=== PATIENT | female | born 1975 | race Caucasian/White ===

== ENCOUNTER → 2019-10-31 | Outpatient (CLI) | payer BC ==
--- NOTE | 2019-10-31 14:59 | KCIC ---
EXAM: Bilateral digital screening mammogram with tomosynthesis. HISTORY: 43-year-old female presents for screening mammography. TECHNIQUE: Full-field digital craniocaudal and mediolateral oblique 2D and 3D tomosynthesis images of both breasts are obtained for evaluation. Computer aided detection with [employer] software version 9.3 was applied. COMPARISON: None. This is a baseline mammogram. BREAST PARENCHYMAL DENSITY: Level D - Extremely dense. FINDINGS: There are areas of nodularity throughout the right breast, the most conspicuous of which appears to be partially circumscribed at the posterior 12:00 position. There are areas of asymmetry within both breasts which do not persist between projections. There are few punctate benign calcifications. There are unremarkable breast implants. IMPRESSION: BI-RADS Category 0: Incomplete. Additional imaging needed. RECOMMENDATION: Further evaluation with a right breast sonogram is recommended to assess areas of mammographic nodularity, predominantly at the posterior 12:00 position. If your mammogram demonstrates that you have dense breast tissue, which could hide abnormalities, and if you have other risk factors for breast cancer that have been identified, you might benefit from supplemental screening tests that may be suggested by your ordering physician. Dense breast tissue, in and of itself, is a relatively common condition. This information is not provided to cause undue concern, but rather to raise your awareness and to promote discussion with your physician regarding the presence of other risk factors, in addition to dense breast tissue. A report of your mammography results will be sent to you and your physician. You should contact your physician if you have any questions or concerns regarding this report. Mammography is a sensitive method for finding small breast cancers, but it does not detect them all and is not a substitute for careful clinical examination. A negative mammogram does not negate a clinically suspicious finding and should not result in delay in biopsying a clinically suspicious abnormality. PQRS compliance statement - Patient information was entered into a reminder system with a target due date for the next mammogram. "Our facility is accredited by the [employer] Mammography [employer]." Electronically signed by: Rachelle Gray MD (10/31/2019 2:56 PM) [email or web address]
== END ==
LOC: KCIC MAMMO 13:30
PROVIDERS: ATTEND Family Medicine
DX: Z12.31 Encounter for screening mammogram for malignant neoplasm of breast (principal)
CPT/HCPCS: 77063; 77067

== ENCOUNTER → 2019-11-09 | Outpatient (CLI) | payer BC ==
--- NOTE | 2019-11-09 13:22 | KCIC ---
Right breast ultrasound: Reason for examination: Nodular density on screening mammogram. Comparison is made to mammographic exam dated 10/31/2019. Right whole breast ultrasound including evaluation of all 4 quadrants and the retroareolar and axillary regions of the right breast was performed. There are multiple small anechoic and hypoechoic lesions consistent with simple and septated cysts and fibrocystic lesions. These measure up to 1.1 cm in size. There is also however a hypoechoic irregularly marginated lesion with some vascular flow measuring 1.1 cm in size at the 10:00 position 4 cm from the nipple line adjacent to the chest wall. Malignancy at this site cannot be excluded and further evaluation with ultrasound-guided biopsy is recommended. No abnormal appearing lymph nodes are seen in the axilla. IMPRESSION: 1.1 cm hypoechoic irregularly marginated lesion with vascular flow at the 10:00 position 4 cm from the nipple. Malignancy cannot be excluded and ultrasound-guided biopsy is recommended. Multiple benign-appearing cystic and fibrocystic lesions measuring up to 1.1 cm in size. Recommend 6 month follow-up. BI-RADS Category 5: Highly suspicious. These findings were discussed with the patient and the patient's nurse practitioner, Dot Powers, was notified about these findings on 11/09/2019 at 1319. "Our facility is accredited by the [employer]ammography [employer]." This patient's information has been entered into a reminder system for the patient to be notified with the results of her examination and a target date for the next mammogram. Electronically signed by: Radha Copeland MD (11/09/2019 1:19 PM) [id number]
== END | disposition home or self-care (01) ==
LOC: KCIC US 09:32
PROVIDERS: ATTEND Family Medicine
DX: N64.89 Other specified disorders of breast (principal)
CPT/HCPCS: 76641

== ENCOUNTER → 2019-11-21 | Outpatient (CLI) | payer BC ==
--- NOTE | 2019-11-21 11:01 | RAD ---
Examination: Right breast diagnostic ultrasound. INDICATION: 43-year-old woman presents for ultrasound-guided right breast core needle biopsy of a suspicious mass in the right breast COMPARISON: Screening mammogram of 10/31/2019 and right breast ultrasound of 11/09/2019. TECHNIQUE AND FINDINGS: Grayscale ultrasound imaging of the upper-outer quadrant right breast in the area of sonographic concern at the 10:00 position 4 cm from the nipple reveals an irregular hypoechoic parallel orientation 9.5 mm mass corresponding with the mass recommended for biopsy on prior breast ultrasound. However, with harmonics, the lesion is less hypoechoic slightly less well-defined. There is peripheral adjacent vascularity. The examination is being performed in the setting of an evolving coronavirus pandemic (COVID-19) for which current CDC guidelines indicate rescheduling nonemergent outpatient visits. Although imaging appearance on today's examination is less suspicious than previously, biopsy should still be considered given the focality of this sonographic finding in the augmented right breast. On direct questioning, patient denies any breast symptoms. After discussing the risks and benefits of proceeding with biopsy, patient accepted my offer to postpone biopsy for up to 3 months. At that time, assuming no new or developing breast symptoms, she can return for follow-up imaging with possible biopsy. She should report any new symptoms to her primary care physician to help facilitate earlier evaluation as clinically warranted. IMPRESSION: Suspicious 9.5 mm right breast mass at the 10:00 position 4 cm from the nipple, previously recommended for biopsy but rescheduled due to current public health guidelines regarding elective outpatient procedures. Recommend patient return within 3 months for follow-up ultrasound and possible biopsy. Discussed with patient. BI-RADS Category 4 Findings suspicious for malignancy Biopsy should should be considered. Recommend patient return within 3 months for reassessment and possible biopsy if the finding persists. BI-RADS 4 -- suspicious abnormality, biopsy recommended
== END | disposition home or self-care (01) ==
LOC: US 08:00
PROVIDERS: ATTEND Surgery
DX: R92.8 Other abnormal and inconclusive findings on diagnostic imaging of breast (principal)
CPT/HCPCS: 76641

== ENCOUNTER → 2020-02-15 | Outpatient (CLI) | payer BC ==
--- NOTE | 2020-02-15 17:16 | RAD ---
DATE: 02/15/2020 3:32 PM EXAM: DIGITAL DIAGNOSTIC RT, US GUID NDL PLACE/ASPI/BX HISTORY: 44-year-old woman with a suspicious 1 cm mass in the right breast status post previous breast augmentation recommended for biopsy but for which biopsy was postponed due to public health guidelines encouraging delay of elective medical procedures during the rising incidence of covid-19 cases earlier in the year. COMPARISON: Screening mammogram of 10/31/2019, right diagnostic breast ultrasound of 11/09/2019 and 11/21/2019 TECHNIQUE AND FINDINGS: Informed consent was obtained and an appropriate procedural pause observed. Using standard sterile technique, ultrasound guidance and local anesthesia, multiple core biopsy samples using a 14-gauge spring-loaded biopsy needle of the area of sonographic concern in the upper outer right breast at the 10:00 position 4 cm from the nipple were obtained. An S shaped biopsy marker was deployed at the biopsy site and hemostasis assured with direct breast compression for 5 minutes. The puncture site was dressed. Implant displaced CC and MLO views of the right breast were obtained following sampling of the area of sonographic suspicion in the upper outer right breast. These showed heterogeneously dense breast parenchyma with a newly present S shaped biopsy marker in the upper outer right breast with no postbiopsy hematoma and no evidence of implant rupture. IMPRESSION: Uncomplicated ultrasound guided right breast core needle biopsy of a 1 cm mass in the upper outer right breast, with satisfactory deployment of the biopsy marker at the targeted site. Pathology results pending. An addendum will be issued once pathology results become available.
--- NOTE | 2020-02-20 17:06 | PATHOLOGY ---
[facility] Accession Number: [id number] . 01 Material submitted: . breast - RIGHT BREAST TISSUE 10:00 4CMFN. Modifiers: right . 01 Clinical history: . Right breast mass . 02 Diagnosis: Breast tissue, right breast mass at 10:00, needle biopsies: - Benign sclerosing lesion of breast showing focal moderate/florid ductal epithelial hyperplasia. See comment. . (JPM:mmbradford/pit; 02/19/2020) [facility] 02/20/2020 0905 Local . 02 Comment: Sections of the right breast mass at 10:00 needle biopsy reveal a sclerosing lesion of breast showing focal duct ectasia and moderate/florid ductal epithelial hyperplasia. Within the sclero-elastotic stroma there are scattered small tubules which are lined by epithelial cells having rounded to ovoid bland appearing nuclei. Immunoperoxidase stains for myoepithelial cells are obtained and yield the following results: . P63 (A1): Presence of myoepithelial cells in small tubules within sclero-elastotic stroma. Smooth muscle myosin heavy chain (A1): Presence of myoepithelial cells in small tubules within sclero-elastotic stroma. . P63 (A2): Presence of myoepithelial cells in small tubules within sclero-elastotic stroma. Smooth muscle myosin heavy chain (A2): Presence of myoepithelial cells in small tubules within sclero-elastotic stroma. . The morphologic and immunophenotypic findings are supportive of the diagnosis of a benign sclerosing lesion of breast showing focal moderate/florid ductal epithelial hyperplasia. . The case is also examined by Dr. Almodovar, who concurs with the diagnosis. (JPM:zamzam 02/20/2020) . Special stains performed: Immunoperoxidase for p63 on A1 and A2 and smooth muscle myosin heavy chain on A1 and A2. . 02 Electronically signed: . Pablo Norris MD, Pathologist NPI- [id number] . 01 Gross description: . The specimen is received in formalin, labeled "Elizabeth Kinney, right breast 10:00 4 cmFN" and consists of 4 needle cores of yellow-villavicencio breast tissue measuring between 0.6 cm and 1.4 cm in length and 0.1-0.2 cm each in diameter which are entirely submitted in A1-A3. The specimen was obtained at 3:15 PM on 02/15/2020 and placed in formalin at 3:18 PM. The cold ischemic time is 3 minutes and the total formalin fixation time is greater than 72 hours. (SDY; 02/18/2020) SYU/SYU 02/18/2020 1448 Local . 02 Pathologist provided ICD-10: N60.21, N62 . 02 CPT . 254365, R99658, [id number] Specimen Comment: A courtesy copy of this report has been sent to [phone], [phone] Specimen Comment: [id number] Specimen Comment: Report sent to / DR CAO Specimen Comment: Report sent to Performed at: 01 [facility] [address], [place] [id number] MD Brock Emery MD Phone: [phone] Performed at: 02 [facility] [address] [place], [place] [id number] MD Pablo Norris MD Phone: [phone]
== END | disposition home or self-care (01) ==
LOC: US 13:17
PROVIDERS: ATTEND Surgery
DX: N63.11 Unspecified lump in the right breast, upper outer quadrant (principal); N60.21 Fibroadenosis of right breast; N62 Hypertrophy of breast
CPT/HCPCS: 19083; 77065; 88305; 88341; 88342; C1713; 19081; 76942

== ENCOUNTER → 2021-03-25 | Outpatient (CLI) | payer BC, OTHER ==
--- NOTE | 2021-03-27 19:07 | RAD ---
DATE: 03/25/2021 EXAM: MAMMO MECHE SCREENING BILATERAL HISTORY: Screening COMPARISON: 02/15/2020 and 10/31/2019 This study was interpreted with the benefit of Computerized Aided Detection (CAD). Breast Density: DENSE The breast parenchyma is dense, which could reduce the sensitivity of mammography. Breast parenchyma level density D. FINDINGS: There are bilateral breast implants. There is an asymmetry in the inferior right breast at middle posterior depth with suggestion of architectural distortion. This is best seen on MLO tomosynthesis image 20/49. No definite correlation on CC view. There is a biopsy clip in the upper right breast. No suspicious ossifications. IMPRESSION: Asymmetry in the inferior right breast. Recommend spot compression MLO view and possible ultrasound if indicated. BI-RADS CATEGORY: 0 INCOMPLETE: NEEDS ADDITIONAL IMAGING EVALUATION AND/OR PRIOR MAMMOGRAMS FOR COMPARISON. RECOMMENDED FOLLOW-UP: ADD ADDITIONAL IMAGING PQRS compliance statement: Patient information was entered into a reminder system with a target due date for the next mammogram. Mammography is a sensitive method for finding small breast cancers, but it does not detect them all and is not a substitute for careful clinical examination. A negative mammogram does not negate a clinically suspicious finding and should not result in delay in biopsying a clinically suspicious abnormality. "Our facility is accredited by the [employer] Mammography [employer]."
== END ==
LOC: MAMMO 15:37
PROVIDERS: ATTEND Family Medicine
DX: Z12.31 Encounter for screening mammogram for malignant neoplasm of breast (principal)
CPT/HCPCS: 77063; 77067

== ENCOUNTER → 2021-04-08 | Outpatient (CLI) | payer OTHER ==
--- NOTE | 2021-04-08 10:29 | RAD ---
EXAM: Right breast diagnostic mammogram with tomosynthesis; right breast sonogram. HISTORY: 45-year-old female presents for evaluation of asymmetry within the right breast demonstrated on a screening mammogram dated 03/25/2021. TECHNIQUE: Full-field digital and spot compression 2D and 3D tomosynthesis images of the right breast are obtained for evaluation. Sonographic imaging of the right breast targeted to the site of mammogr aphic asymmetry was also performed. COMPARISON: 03/25/2021 BREAST PARENCHYMAL DENSITY: Level D - Extremely dense. FINDINGS: The asymmetry of concern within the inferior right breast is less conspicuous with the anastacio tional mammographic views. There is no suspicious architectural distortion or calcification. Sonographic imaging of the right breast targeted to the site of asymmetry demonstrates a 10 mm hypoec hoic lesion at the 5:00 position 4 cm from the nipple. This demonstrates a benign wire than tall morp hology and no convincing internal blood flow, favoring a benign fibrocystic etiology. There is dense breast parenchyma and mild ductal ectasia. There is a right breast implant. There is no suspicious ax illary lymph node. IMPRESSION: 1. 10 mm benign-appearing hypoechoic lesion at the 5:00 position 4 cm from the nipple, the appearance of which favors a fibrocystic etiology. This likely accounts for asymmetry of concern on the recent screening mammogram. No additional lesion is seen. 2. BI-RADS Category 3: Probably benign finding(s). Short term follow up with a right breast sonogram in 6 months is recommended to confirm stability. if your mammogram demonstrates that you have dense breast tissue, which could hide abnormalities, and if you have other risk factors for breast cancer that have been identified, you might benefit from s upplemental screening tests that may be suggested by your ordering physician. Dense breast tissue, i n and of itself, is a relatively common condition. This information is not provided to cause undue c oncern, but rather to raise your awareness and to promote discussion with your physician regarding th e presence of other risk factors, in addition to dense breast tissue. A report of your mammography re sults will be sent to you and your physician. You should contact your physician if you have any ques tions or concerns regarding this report. Mammography is a sensitive method for finding small breast cancers, but it does not detect them all a nd is not a substitute for careful clinical examination. A negative mammogram does not negate a clin ically suspicious finding and should not result in delay in biopsying a clinically suspicious abnorma lity. PQRS compliance statement - Patient information was entered into a reminder system with a target due date for the next mammogram. "Our facility is accredited by the [employer] Mammography [employer]." Electronically signed by: Rachelle Gray MD (04/08/2021 10:27 AM) [id number]
== END ==
LOC: MAMMO 09:57
PROVIDERS: ATTEND Family Medicine
DX: R92.2 Inconclusive mammogram (principal); N64.9 Disorder of breast, unspecified
CPT/HCPCS: 76641; 77065